=== PATIENT | female | born 1955 | race Caucasian/White ===

== ENCOUNTER 2019-03-31 10:19 | Outpatient (RCR) | payer SELFPAY | END 2019-05-05 | disposition home or self-care (01) | LOC: ONC 10:19 | PROVIDERS: ATTEND Radiology Radiation Oncology | DX: Z51.0 Encounter for antineoplastic radiation therapy (principal); C15.9 Malignant neoplasm of esophagus, unspecified; E03.9 Hypothyroidism, unspecified; I10 Essential (primary) hypertension; K21.9 Gastro-esophageal reflux disease without esophagitis; E78.00 Pure hypercholesterolemia, unspecified; F32.9 Major depressive disorder, single episode, unspecified; Z80.1 Family history of malignant neoplasm of trachea, bronchus and lung; Z87.891 Personal history of nicotine dependence; Z79.899 Other long term (current) drug therapy | CPT/HCPCS: 77290; 77295; 77300; 77334; 77336; 77417; 99204 ==

== ENCOUNTER → 2019-05-20 | Outpatient (CLI) | payer SELFPAY | LOC: EDSTATUS 05-06 10:18 → ONC 10:20 | PROVIDERS: ATTEND Radiology Radiation Oncology | DX: C51.9 Malignant neoplasm of vulva, unspecified (principal); E03.9 Hypothyroidism, unspecified; I10 Essential (primary) hypertension; K21.9 Gastro-esophageal reflux disease without esophagitis; K52.9 Noninfective gastroenteritis and colitis, unspecified; E78.00 Pure hypercholesterolemia, unspecified; F32.9 Major depressive disorder, single episode, unspecified; Z90.79 Acquired absence of other genital organ(s); Z90.49 Acquired absence of other specified parts of digestive tract | CPT/HCPCS: 99213 ==